=== PATIENT | female | born 1980 | race Caucasian/White ===

== ENCOUNTER 2016-08-15 18:28 | Emergency (ER) | payer OTHER ==
[~2016-08-15] VITALS: Ht 154.9 cm; Wt 110.5 kg
[~2016-08-15 18:28] MED LIST: CEPH-443 PO; ERYT1OIN6 RIGHT EYE; ESCI5TAB PO; IBUP-1542 PO; IBUP800T25 PO; LOPE2CAP PO; LORA-441 PO; NPH10OT BOTH EARS; TRAM50TA2 PO; ZIPR60CA6 PO
[2016-08-15 18:35] VITALS: Ht 154.9 cm; Wt 110.5 kg
--- NOTE | 2016-08-15 19:25 | ERD ---
ER Documentation Chief Complaint Date/Time DATE: 08/15/16 TIME: 19:21 Chief Complaint sp slipped and fall, right knee pain HPI This a 28-year-old female who presents to the emergency department today complaining of some right knee pain. Patient states that she was walking towards the sore today when she slipped and fell in the rain. She states she landed on top of her knee. She states she is able to move it but has pain. She has not taken any medication for the pain. Denies any fevers or chills. Denies any previous trauma to her knee. ROS All systems reviewed and are negative except as per history of present illness. Medications Home Meds Active Scripts Ibuprofen* (Motrin*) 600 Mg Tab, 600 MG PO Q6, #30 TAB Prov:JUAN JOSE ZUÑIGA PA-C 08/15/16 Loperamide Hcl* (Imodium*) 2 Mg Capsule, 2 MG PO .AFTER EA LOOSE BM Y for DIARRHEA, #10 TAB Prov:JOSE A DIAS PA-C 06/09/16 Tramadol HCl (Tramadol HCl) 50 Mg Tablet, 50 MG PO Q6 Y for PAIN, #12 TAB Prov:JUAN JOSE ZUÑIGA PA-C 01/22/16 Ibuprofen* (Motrin*) 600 Mg Tab, 600 MG PO Q6, #30 TAB Prov:JUAN JOSE ZUÑIGA PA-C 01/22/16 Cephalexin* (Keflex*) 500 Mg Capsule, 500 MG PO QID for 5 Days, CAP Prov:MARYELLEN SARKAR MD 09/08/15 Ibuprofen* (Motrin*) 600 Mg Tab, 600 MG PO Q6, #20 TAB Prov:MARYELLEN SARKAR MD 09/08/15 Tramadol HCl (Tramadol HCl) 50 Mg Tablet, 50 MG PO Q4 Y for PAIN, #20 TAB Prov:MARYELLEN SARKAR MD 09/08/15 Neomycin/Polymyxin/Hydrocort* (Cortisporin* Otic) 10 Ml Susp, 4 DROP BOTH EARS QID for 7 Days, EA Prov:CARITO LACY PA-C 08/09/15 Ibuprofen* (Ibuprofen*) 600 Mg Tablet, 600 MG PO Q6 for PAIN, #30 TAB Prov:AYANNA ALONSO PA-C 05/30/15 Erythromycin (Erythromycin Opth) 3.5 Gm Oint..gm., 1 APPLIC RIGHT EYE Q6, #1 TUB Prov:TALIA CHAVES NP 03/23/15 Ibuprofen* (Ibuprofen*) 800 Mg Tablet, 800 MG PO Q6H Y for PAIN AND OR ELEVATED TEMP, #30 TAB Prov:CARITO LACY PA-C 12/10/14 Reported Medications Escitalopram Oxalate* (Lexapro*) Unknown Strength Tablet, PO DAILY, TAB 11/12/14 Lorazepam* (Ativan*) 0.5 Mg Tablet, 0.5 MG PO HS 12/09/12 Ziprasidone* (Geodon*) 60 Mg Capsule, 120 MG PO HS 03/04/10 Allergies Allergies: Coded Allergies: aspirin (Verified Allergy, Mild, 06/09/16) acetaminophen (Verified Allergy, Unknown, ITCH, 06/09/16) hydrocodone bit (Verified Allergy, Unknown, ITCH, 06/09/16) PMhx/Soc History of Surgery: Yes (c/section x2) Anesthesia Reaction: No Hx Neurological Disorder: No Hx Respiratory Disorders: No Hx Cardiac Disorders: No Hx Psychiatric Problems: Yes (depression, bipolar) Hx Miscellaneous Medical Probl: No Hx Alcohol Use: No Hx Substance Use: No Hx Tobacco Use: No Physical Exam Vitals Vital Signs Date Time Temp Pulse Resp B/P Pulse Ox O2 Delivery O2 Flow Rate FiO2 08/15/16 18:35 96.5 112 20 127/76 100 Physical Exam Const: Obese, no acute distress Head: Atraumatic Eyes: Normal Conjunctiva ENT: Normal External Ears, Nose and Mouth. Neck: Full range of motion..~ No meningismus. Resp: Clear to auscultation bilaterally Cardio: Regular rate and rhythm, no murmurs Abd: Soft, non tender, non distended. Normal bowel sounds Skin: No petechiae or rashes MSK: Right knee with no obvious deformity. No effusion. Evidence of contusion and bruise over anterior aspect of tibial tubercle. Range of motion 0-100 secondary to soft tissue restriction. Pulses 2+. Distal neurovascularly intact. Psych: Normal Mood and Affect Results 24 hrs Current Medications Medications (Trade) Dose Ordered Sig/Betsey Route PRN Reason Start Time Stop Time Status Last Admin Dose Admin Ibuprofen (Motrin) 800 mg ONCE ONCE PO 08/15/16 19:30 08/15/16 19:31 DC 08/15/16 19:51 DIAGNOSTIC IMAGING REPORT Patient: JAMIE STEIN : 1980 Age: 36 Sex: F MR #: [id number] DOS: 08/15/16 0000 Ordering MD: JUAN JOSE ZUÑIGA PA-C Location: [facility] Room/Bed: AMENDMENT: 08/15/2016 8:41:17 PM Armand Levine MD ADDENDUM: Correction of dictation however. PROCEDURE: Right knee x-ray. TECHNIQUE: AP, lateral and oblique views of the right knee. IMPRESSION: Normal x-ray of the right knee. PROCEDURE: Left knee x-ray CLINICAL INDICATION: Fall with blunt trauma to the right knee. TECHNIQUE: AP, lateral and oblique views of the left knee were obtained. COMPARISON: None FINDINGS: There is normal mineralization. No acute fracture or dislocation is seen. There are no significant degenerative changes. There is no joint effusion. There is no significant soft tissue swelling. IMPRESSION: Normal x-ray of the left knee. RPTAT: [facility] Physician Yasmany Date Time Electronically viewed and signed by Physician Yasmany on 08/15/2016 20:41 RS/ CC: JUAN JOSE ZUÑIGA PA-C Procedures/MDM This is a 36-year-old female who presents the emergency department today complaining of right knee pain after slipping and falling in the rain today. Given that there was trauma patient did have some bruising on physical exam I did obtain images. Per the radiology report images of the right knee show no acute fracture or dislocation. There is no joint effusion. There is no significant degenerative changes. Patient's symptoms at this time consistent with sprain versus strain versus contusion. She was given Motrin here in the emergency department. I'll give her a prescription for home. She is also given a knee immobilizer and crutches. At this time the patient is stable for discharge and outpatient management. Patient should follow up with their PCP in the next 1-2 days. They may return to the emergency department sooner for any persistent or worsening of symptoms. Patient understood and agreed with the plan. Departure Diagnosis: Primary Impression: Knee injury Encounter type: initial encounter Laterality: right Qualified Code: S89.91XA - Knee injury, right, initial encounter Condition: JUAN JOSE Trent PA-C Aug 15, 2016 19:24
[2016-08-15] MEDS ORDERED: IBUPROFEN 800 MG TAB PO ONE (19:30)
--- NOTE | 2016-08-15 19:52 | RADRPT ---
AMENDMENT: 08/15/2016 8:41:17 PM Armand Levine MD ADDENDUM: Correction of dictation however. PROCEDURE: Right knee x-ray. TECHNIQUE: AP, lateral and oblique views of the right knee. IMPRESSION: Normal x-ray of the right knee. PROCEDURE: Left knee x-ray CLINICAL INDICATION: Fall with blunt trauma to the right knee. TECHNIQUE: AP, lateral and oblique views of the left knee were obtained. COMPARISON: None FINDINGS: There is normal mineralization. No acute fracture or dislocation is seen. There are no significant degenerative changes. There is no joint effusion. There is no significant soft tissue swelling. IMPRESSION: Normal x-ray of the left knee. RPTAT: [facility] Physician Yasmany Date Time Electronically viewed and signed by Physician Yasmany on 08/15/2016 20:41 RS/
[2016-08-15] MEDS ORDERED: IBUP-1542 PO (21:05)
[2016-08-15 21:42] VITALS: BP 166/72; PULSE 95; RESP 16
== END 2016-08-15 21:43 | disposition home or self-care (01) ==
LOC: FTE 18:28
DX: S89.91XA Unspecified injury of right lower leg, initial encounter (principal); W01.0XXA Fall on same level from slipping, tripping and stumbling without subsequent striking against object, initial encounter; Y92.9 Unspecified place or not applicable
CPT/HCPCS: 73562

== ENCOUNTER 2016-08-22 22:25 | Emergency (ER) | payer OTHER ==
[~2016-08-22] VITALS: Ht 154.9 cm; Wt 111.0 kg
[2016-08-22 22:48] VITALS: Ht 154.9 cm; Wt 111.0 kg
--- NOTE | 2016-08-22 23:08 | ERD ---
ER Documentation Chief Complaint Date/Time DATE: 08/22/16 TIME: 23:06 Chief Complaint Left wrist pain(contrary to nursing note is a left breast not the right.) HPI 28-year-old female complains of left-sided wrist pain status post ground-level fall that occurred just prior to arrival after slipping. She fell onto an outstretched hand, complains of radial wrist pain, described as achy, nonradiating, moderate pain. She took Naprosyn prior to arrival that slightly helped. ROS All systems reviewed and are negative except as per history of present illness. Medications Home Meds Active Scripts Tramadol HCl (Tramadol HCl) 50 Mg Tablet, 50 MG PO Q4 Y for PAIN, #20 TAB Prov:JOSE A DIAS PA-C 08/22/16 Ibuprofen* (Motrin*) 600 Mg Tab, 600 MG PO Q6, #30 TAB Prov:JUAN JOSE ZUÑIGA PA-C 08/15/16 Loperamide Hcl* (Imodium*) 2 Mg Capsule, 2 MG PO .AFTER EA LOOSE BM Y for DIARRHEA, #10 TAB Prov:JOSE A DIAS PA-C 06/09/16 Tramadol HCl (Tramadol HCl) 50 Mg Tablet, 50 MG PO Q6 Y for PAIN, #12 TAB Prov:JUAN JOSE ZUÑIGA PA-C 01/22/16 Ibuprofen* (Motrin*) 600 Mg Tab, 600 MG PO Q6, #30 TAB Prov:JUAN JOSE ZUÑIGA PA-C 01/22/16 Cephalexin* (Keflex*) 500 Mg Capsule, 500 MG PO QID for 5 Days, CAP Prov:MARYELLEN SARKAR MD 09/08/15 Ibuprofen* (Motrin*) 600 Mg Tab, 600 MG PO Q6, #20 TAB Prov:MARYELLEN SARKAR MD 09/08/15 Tramadol HCl (Tramadol HCl) 50 Mg Tablet, 50 MG PO Q4 Y for PAIN, #20 TAB Prov:MARYELLEN SARKAR MD 09/08/15 Neomycin/Polymyxin/Hydrocort* (Cortisporin* Otic) 10 Ml Susp, 4 DROP BOTH EARS QID for 7 Days, EA Prov:CARITO LACY PA-C 08/09/15 Ibuprofen* (Ibuprofen*) 600 Mg Tablet, 600 MG PO Q6 for PAIN, #30 TAB Prov:AYANNA ALONSO PA-C 05/30/15 Erythromycin (Erythromycin Opth) 3.5 Gm Oint..gm., 1 APPLIC RIGHT EYE Q6, #1 TUB Prov:NATANELISHATALIA BAHMAN Pope NP 03/23/15 Ibuprofen* (Ibuprofen*) 800 Mg Tablet, 800 MG PO Q6H Y for PAIN AND OR ELEVATED TEMP, #30 TAB Prov:CARITO LACY PA-C 12/10/14 Reported Medications Escitalopram Oxalate* (Lexapro*) Unknown Strength Tablet, PO DAILY, TAB 11/12/14 Lorazepam* (Ativan*) 0.5 Mg Tablet, 0.5 MG PO HS 12/09/12 Ziprasidone* (Geodon*) 60 Mg Capsule, 120 MG PO HS 03/04/10 Allergies Allergies: Coded Allergies: aspirin (Verified Allergy, Mild, 06/09/16) acetaminophen (Verified Allergy, Unknown, ITCH, 06/09/16) hydrocodone bit (Verified Allergy, Unknown, ITCH, 06/09/16) PMhx/Soc History of Surgery: Yes (c/section x2) Anesthesia Reaction: No Hx Neurological Disorder: No Hx Respiratory Disorders: No Hx Cardiac Disorders: No Hx Psychiatric Problems: Yes (depression, bipolar, states she sometimes hears voices) Hx Miscellaneous Medical Probl: No Hx Alcohol Use: No Hx Substance Use: No Hx Tobacco Use: No Smoking Status: Never smoker Physical Exam Vitals Vital Signs Date Time Temp Pulse Resp B/P Pulse Ox O2 Delivery O2 Flow Rate FiO2 08/22/16 22:48 98.1 94 16 123/74 100 Physical Exam General: Well-developed, well-nourished. The patient appears in no acute distress. HEENT: Head is normocephalic, atraumatic. No scleral icterus. Neck: Supple. Nontender. Lungs: Clear to auscultation. Normal air movement. Heart: Regular rate and rhythm. S1 and S2 are normal. No murmurs, gallops, or rubs. Abdomen: Nondistended. Extremities: Left radial wrist has tenderness to palpation, no bony deformities , no bony tenderness, no snuffbox tenderness. Capillary refill less than 2 seconds. Neurologic: Alert and oriented 3. No focal deficits. Normal speech and gait. Skin: Normal turgor. No rash or lesions. Results 24 hrs Current Medications Medications (Trade) Dose Ordered Sig/Betsey Route PRN Reason Start Time Stop Time Status Last Admin Dose Admin Acetaminophen (Tylenol Tab) 650 mg ONCE ONCE PO 08/22/16 23:30 08/22/16 23:31 DC 08/22/16 23:21 Procedures/MDM ED course: She was given Tylenol for pain, x-rays of the left wrist were obtained. X-ray Wrist 3V Interpreted by me: Scaphoid: Normal Bones: No fracture Joints: No dislocation Foreign body: None Patient's left wrist was placed in a Velcro wrist splint. Splint Assessment: Neurovascularly intact post splint placement with good fit. MDM: 28-year-old female presents as with a fall, resulting in left wrist pain, sprain versus fracture. She is neurologically intact, will be discharged with a splint, and pain meds as needed. Departure Diagnosis: Primary Impression: Wrist injury Condition: Good JOSE A DIAS PA-C Aug 22, 2016 23:08
[2016-08-22] MEDS ORDERED: ACETAMINOPHEN 325 MG TAB PO ONE (23:30)
[2016-08-22] MEDS ORDERED: TRAM50TA2 PO (23:58)
--- NOTE | 2016-08-23 00:13 | RADRPT ---
PROCEDURE: XR Left Wrist. CLINICAL INDICATION: Trauma. Pain. TECHNIQUE: AP, lateral and oblique views of the left wrist were performed. COMPARISON: No prior studies are available for comparison. FINDINGS: No acute fracture is identified. Joint relationships are maintained. Bone mineralization is within normal limits. Soft tissues are unremarkable. IMPRESSION: 1. No acute abnormality. RPTAT: HMVK .Clarence Groves MD, Date Time Electronically viewed and signed by .Clarence Groves MD, on 08/23/2016 00:13 .K/
== END 2016-08-23 01:05 | disposition home or self-care (01) ==
LOC: FTE 22:25
DX: S69.92XA Unspecified injury of left wrist, hand and finger(s), initial encounter (principal); W01.0XXA Fall on same level from slipping, tripping and stumbling without subsequent striking against object, initial encounter; Y92.9 Unspecified place or not applicable

== ENCOUNTER 2016-11-10 18:27 | Emergency (ER) | payer OTHER ==
[~2016-11-10] VITALS: Ht 157.5 cm; Wt 106.0 kg
[2016-11-10 18:53] VITALS: Ht 157.5 cm; Wt 106.0 kg
[2016-11-10] MEDS ORDERED: CYCL-319 PO (20:08)
--- NOTE | 2016-11-10 20:12 | ERD ---
ER Documentation Chief Complaint Date/Time DATE: 11/10/16 TIME: 20:10 Chief Complaint Left side neck pain since Sunday. possible stiff neck HPI This patient is a 28-year-old female with no past medical history presenting to the emergency department for left paraspinal C-spine pain which began 5 days ago. Pain is constant and stabbing. The patient has taken ibuprofen at home with mild relief of symptoms. The patient denies radiation. The patient denies falls, trauma, head injury, loss of consciousness, or other symptoms at this time. ROS All systems reviewed and are negative except as per history of present illness. Medications Home Meds Active Scripts Cyclobenzaprine Hcl* (Cyclobenzaprine Hcl*) 10 Mg Tablet, 10 MG PO TID, #15 TAB Prov:DARLING BRYANT PA-C 11/10/16 Tramadol HCl (Tramadol HCl) 50 Mg Tablet, 50 MG PO Q4 Y for PAIN, #20 TAB Prov:JOSE A DIAS PA-C 08/22/16 Ibuprofen* (Motrin*) 600 Mg Tab, 600 MG PO Q6, #30 TAB Prov:JUAN JOSE ZUÑIGA PA-C 08/15/16 Loperamide Hcl* (Imodium*) 2 Mg Capsule, 2 MG PO .AFTER EA LOOSE BM Y for DIARRHEA, #10 TAB Prov:JOSE A DIAS PA-C 06/09/16 Tramadol HCl (Tramadol HCl) 50 Mg Tablet, 50 MG PO Q6 Y for PAIN, #12 TAB Prov:JUAN JOSE ZUÑIGA PA-C 01/22/16 Ibuprofen* (Motrin*) 600 Mg Tab, 600 MG PO Q6, #30 TAB Prov:JUAN JOSE ZUÑIGA PA-C 01/22/16 Cephalexin* (Keflex*) 500 Mg Capsule, 500 MG PO QID for 5 Days, CAP Prov:MARYELLEN SARKAR MD 09/08/15 Ibuprofen* (Motrin*) 600 Mg Tab, 600 MG PO Q6, #20 TAB Prov:MARYELLEN SARKAR MD 09/08/15 Tramadol HCl (Tramadol HCl) 50 Mg Tablet, 50 MG PO Q4 Y for PAIN, #20 TAB Prov:MARYELLEN SARKAR MD 09/08/15 Neomycin/Polymyxin/Hydrocort* (Cortisporin* Otic) 10 Ml Susp, 4 DROP BOTH EARS QID for 7 Days, EA Prov:CARITO LACY PA-C 08/09/15 Ibuprofen* (Ibuprofen*) 600 Mg Tablet, 600 MG PO Q6 for PAIN, #30 TAB Prov:AYANNA ALONSO PA-C 05/30/15 Erythromycin (Erythromycin Opth) 3.5 Gm Oint..gm., 1 APPLIC RIGHT EYE Q6, #1 TUB Prov:TALIA CHAVES ROUGE PRESSER 03/23/15 Ibuprofen* (Ibuprofen*) 800 Mg Tablet, 800 MG PO Q6H Y for PAIN AND OR ELEVATED TEMP, #30 TAB Prov:CARITO LACY PA-C 12/10/14 Reported Medications Escitalopram Oxalate* (Lexapro*) Unknown Strength Tablet, PO DAILY, TAB 11/12/14 Lorazepam* (Ativan*) 0.5 Mg Tablet, 0.5 MG PO HS 12/09/12 Ziprasidone* (Geodon*) 60 Mg Capsule, 120 MG PO HS 03/04/10 Allergies Allergies: Coded Allergies: aspirin (Verified Allergy, Mild, 11/10/16) acetaminophen (Verified Allergy, Unknown, ITCH, 11/10/16) hydrocodone bit (Verified Allergy, Unknown, ITCH, 11/10/16) PMhx/Soc History of Surgery: Yes (c/section x2) Anesthesia Reaction: No Hx Neurological Disorder: No Hx Respiratory Disorders: No Hx Cardiac Disorders: No Hx Psychiatric Problems: Yes (depression, bipolar, states she sometimes hears voices) Hx Miscellaneous Medical Probl: No Hx Alcohol Use: No Hx Substance Use: No Hx Tobacco Use: No FmHx Noncontributory for chief complaint Physical Exam Vitals Vital Signs Date Time Temp Pulse Resp B/P Pulse Ox O2 Delivery O2 Flow Rate FiO2 11/10/16 18:53 98.6 80 20 129/72 98 Physical Exam Const: The patient is resting comfortably in no acute distress. Head: Atraumatic Eyes: Normal Conjunctiva ENT: Normal External Ears, Nose and Mouth. Neck: Full range of motion..~ No meningismus. There is some tenderness to palpation with some spasms noted to the left-sided paraspinal muscles of the C-spine. There is no midline tenderness. Resp: Clear to auscultation bilaterally Cardio: Regular rate and rhythm, no murmurs Abd: Soft, non tender, non distended. Normal bowel sounds Skin: No petechiae or rashes Back: No midline or flank tenderness Ext: No cyanosis, or edema Neur: Awake and alert Psych: Normal Mood and Affect Procedures/MDM 28-year-old female presents secondary to complaints of left paraspinal cervical pain. On physical examination the patient's vitals are within normal limits. There is some tenderness palpation with spasms noted of the paraspinal muscles of the cervical spine area. I do not feel that the patient requires imaging at this time due to her denying any falls or trauma to the area. The patient is stable for outpatient management with a prescription for Flexeril. She was given counseling regarding injury prevention and neck exercises to do at home. The patient is to have close follow-up with her primary care physician. Strict ER return precautions were discussed and the patient demonstrates good understanding. Departure Diagnosis: Primary Impression: Neck pain Additional Impression: Neck muscle strain Encounter type: initial encounter Qualified Code: S16.1XXA - Neck muscle strain, initial encounter Condition: Fair Patient Instructions: Neck Pain, No Trauma Referrals: [facility] YOU HAVE RECEIVED A MEDICAL SCREENING EXAM AND THE RESULTS INDICATE THAT YOU DO NOT HAVE A CONDITION THAT REQUIRES URGENT TREATMENT IN THE EMERGENCY DEPARTMENT. FURTHER EVALUATION AND TREATMENT OF YOUR CONDITION CAN WAIT UNTIL YOU ARE SEEN IN YOUR DOCTORS OFFICE WITHIN THE NEXT 1-2 DAYS. IT IS YOUR RESPONSIBILITY TO MAKE AN APPOINTMENT FOR FOLOW-UP CARE. IF YOU HAVE A PRIMARY DOCTOR --you should call your primary doctor and schedule an appointment IF YOU DO NOT HAVE A PRIMARY DOCTOR YOU CAN CALL OUR PHYSICIAN REFERRAL HOTLINE AT IF YOU CAN NOT AFFORD TO SEE A PHYSICIAN YOU CAN CHOSE FROM THE FOLLOWING [facility] [id number] [facility]. [facility] [address] [facility]. [facility] [place] [address] [facility] [address] [facility]. [facility] [address] [facility]. [facility] [address] Additional Instructions: Follow up with your PCP within the next 1-3 days for a more thorough evaluation and a possible referral to a specialist. Return the the emergency department immediately if symptoms worsen or change. If you have any questions regarding medications, ask your pharmacist or us before you leave. If any adverse reactions, occur while taking your medications, discontinue the treatment and return to the emergency department immediately. If any new or worsening symptoms, uncontrolled fevers, or other unexplained symptoms occur, return to the emergency department immediately. Take your medications as directed, and complete the entire course of treatment. DRALING BRYANT PA-C November 10, 2016 20:12
== END 2016-11-10 20:35 | disposition home or self-care (01) ==
LOC: FTE 18:27
DX: S16.1XXA Strain of muscle, fascia and tendon at neck level, initial encounter (principal); X58.XXXA Exposure to other specified factors, initial encounter; Y92.9 Unspecified place or not applicable
CPT/HCPCS: 99283

== ENCOUNTER 2017-02-01 21:41 | Emergency (ER) | payer OTHER ==
[~2017-02-01] VITALS: Ht 154.9 cm; Wt 100.5 kg
[~2017-02-01 21:41] MED LIST changes: +CYCL-319 PO
[2017-02-01 21:55] VITALS: Ht 154.9 cm; Wt 100.5 kg
[2017-02-02] MEDS ORDERED: LIDOCAINE 2% (MDV) 20 ML INJ INJ ONE
[2017-02-02] MEDS ORDERED: SULF1TAB31 PO (01:12)
[2017-02-02] MEDS ORDERED: CEPH-443 PO (01:12)
[2017-02-02 01:33] VITALS: BP 123/76; PULSE 75; RESP 16; TEMP 98.5
--- NOTE | 2017-02-02 01:43 | ERD ---
ER Documentation Chief Complaint Date/Time DATE: 02/02/17 TIME: 01:39 Chief Complaint "lump" in between pubic area - noticed by pt since yesterday HPI 37-year-old female patient with no significant past medical history presents the ED complaining of a left inner thigh bump that she noticed yesterday. Reports that it is very painful. States that it is red. Denies any insect bites. Denies any vaginal discharge or bleeding. Denies any dysuria, urgency, frequency, nausea, vomiting, abdominal pain. Denies any difficulty walking. ROS All systems reviewed and are negative except as per history of present illness. Medications Home Meds Active Scripts Cephalexin* (Keflex*) 500 Mg Capsule, 500 MG PO QID for 7 Days, CAP Prov:GERA CHAMBERS PA-C 02/02/17 Sulfamethoxazole/Trimethoprim* (Bactrim Ds* Tablet) 1 Each Tablet, 1 TAB PO BID for 7 Days, #14 TAB Prov:GERA CHAMBERS PA-C 02/02/17 Cyclobenzaprine Hcl* (Cyclobenzaprine Hcl*) 10 Mg Tablet, 10 MG PO TID, #15 TAB Prov:DARLING BRYANT PA-C 11/10/16 Tramadol HCl (Tramadol HCl) 50 Mg Tablet, 50 MG PO Q4 Y for PAIN, #20 TAB Prov:JOSE A DIAS PA-C 08/22/16 Ibuprofen* (Motrin*) 600 Mg Tab, 600 MG PO Q6, #30 TAB Prov:JUAN JOSE ZUÑIGA PA-C 08/15/16 Loperamide Hcl* (Imodium*) 2 Mg Capsule, 2 MG PO .AFTER EA LOOSE BM Y for DIARRHEA, #10 TAB Prov:JOSE A DIAS PA-C 06/09/16 Tramadol HCl (Tramadol HCl) 50 Mg Tablet, 50 MG PO Q6 Y for PAIN, #12 TAB Prov:JUAN JOSE ZUÑIGA PA-C 01/22/16 Ibuprofen* (Motrin*) 600 Mg Tab, 600 MG PO Q6, #30 TAB Prov:JUAN JOSE ZUÑIGA PA-C 01/22/16 Cephalexin* (Keflex*) 500 Mg Capsule, 500 MG PO QID for 5 Days, CAP Prov:MARYELLEN SARKAR MD 09/08/15 Ibuprofen* (Motrin*) 600 Mg Tab, 600 MG PO Q6, #20 TAB Prov:MARYELLEN SARKAR MD 09/08/15 Tramadol HCl (Tramadol HCl) 50 Mg Tablet, 50 MG PO Q4 Y for PAIN, #20 TAB Prov:MARYELLEN SARKAR MD 09/08/15 Neomycin/Polymyxin/Hydrocort* (Cortisporin* Otic) 10 Ml Susp, 4 DROP BOTH EARS QID for 7 Days, EA Prov:CARITO LACY PA-C 08/09/15 Ibuprofen* (Ibuprofen*) 600 Mg Tablet, 600 MG PO Q6 for PAIN, #30 TAB Prov:AYANNA ALONSO PA-C 05/30/15 Erythromycin (Erythromycin Opth) 3.5 Gm Oint..gm., 1 APPLIC RIGHT EYE Q6, #1 TUB Prov:TALIA CHAVES NP 03/23/15 Ibuprofen* (Ibuprofen*) 800 Mg Tablet, 800 MG PO Q6H Y for PAIN AND OR ELEVATED TEMP, #30 TAB Prov:CARITO LACY PA-C 12/10/14 Reported Medications Escitalopram Oxalate* (Lexapro*) Unknown Strength Tablet, PO DAILY, TAB 11/12/14 Lorazepam* (Ativan*) 0.5 Mg Tablet, 0.5 MG PO HS 12/09/12 Ziprasidone* (Geodon*) 60 Mg Capsule, 120 MG PO HS 03/04/10 Allergies Allergies: Coded Allergies: aspirin (Verified Allergy, Mild, 11/10/16) acetaminophen (Verified Allergy, Unknown, ITCH, 11/10/16) hydrocodone bit (Verified Allergy, Unknown, ITCH, 11/10/16) PMhx/Soc History of Surgery: Yes (c/section x2) Anesthesia Reaction: No Hx Neurological Disorder: No Hx Respiratory Disorders: No Hx Cardiac Disorders: No Hx Psychiatric Problems: Yes (depression, bipolar, states she sometimes hears voices) Hx Miscellaneous Medical Probl: No Hx Alcohol Use: No Hx Substance Use: No Hx Tobacco Use: No Smoking Status: Never smoker Physical Exam Vitals Vital Signs Date Time Temp Pulse Resp B/P Pulse Ox O2 Delivery O2 Flow Rate FiO2 02/02/17 01:33 98.5 75 16 123/76 99 Room Air 02/01/17 21:55 98.4 89 20 130/68 99 Physical Exam Const: [id number], well-nourished. In no acute distress. Head: Atraumatic, normocephalic Eyes: Normal Conjunctiva without injection ENT: Normal external ear, nose and mouth. Neck: Full range of motion. No meningismus. Resp: Clear to auscultation bilaterally. No wheezing, rhonchi, rales, or crackles. No accessory muscle use. No retractions. Cardio: Regular rate and rhythm, no murmurs Skin: No petechiae or rashes Back: No midline tenderness. No CVA tenderness. Ext: No cyanosis, or edema. Cap refill less than 2 seconds. Distal pulses intact bilaterally. 2 cm fluctuant abscess noted on the left inner thigh near the posterior buttocks with slight surrounding erythema. No lymphatic streaking. No bleeding noted. No spontaneous drainage noted. Neur: Awake and alert. Normal gait and coordination. Muscle strength 5/5. Sensation intact bilaterally. Psych: Normal Mood and Affect Results 24 hrs Current Medications Medications (Trade) Dose Ordered Sig/Betsey Route PRN Reason Start Time Stop Time Status Last Admin Dose Admin Lidocaine (Xylocaine 2% (Mdv) 20 ml) 20 ml ONCE ONCE INJ 02/02/17 00:00 02/02/17 00:01 DC Procedures/MDM This is a 37-year-old female patient with no sniffing a past medical history presents to the ED complaining of a red bump to her left inner thigh and near her posterior buttocks. Patient is afebrile and nontoxic-appearing. Patient has normal vital signs. Patient gave consent to do a incision and drainage at this time. Patient gave consent to perform incision and drainage. 11 blade scalpel used to make a small incision. Abscess Incision and Drainage with irrigation by me: Location: Left inner thigh near the posterior buttocks Anesthesia: [3 cc local 1% Lidocaine] Technique: [Irrigated. Disrupted loculations w/ instrumentation ] Packing: [None] Complications: [Neurovascularly intact post procedure] Copious purulent discharge drained from the abscess. Keflex and Bactrim was prescribed to patient. Instructed patient to return to the ED sooner for any worsening symptoms. Follow up with primary care physician or return to the ED in 2 days for a wound check. Patient's questions were answered. Patient understood and agreed with discharge plan. Departure Diagnosis: Primary Impression: Abscess Condition: Stable Patient Instructions: Abscess, Incision And Drainage Referrals: [facility] YOU HAVE RECEIVED A MEDICAL SCREENING EXAM AND THE RESULTS INDICATE THAT YOU DO NOT HAVE A CONDITION THAT REQUIRES URGENT TREATMENT IN THE EMERGENCY DEPARTMENT. FURTHER EVALUATION AND TREATMENT OF YOUR CONDITION CAN WAIT UNTIL YOU ARE SEEN IN YOUR DOCTORS OFFICE WITHIN THE NEXT 1-2 DAYS. IT IS YOUR RESPONSIBILITY TO MAKE AN APPOINTMENT FOR FOLOW-UP CARE. IF YOU HAVE A PRIMARY DOCTOR --you should call your primary doctor and schedule an appointment IF YOU DO NOT HAVE A PRIMARY DOCTOR YOU CAN CALL OUR PHYSICIAN REFERRAL HOTLINE AT IF YOU CAN NOT AFFORD TO SEE A PHYSICIAN YOU CAN CHOSE FROM THE FOLLOWING [facility] [address] [facility]. [facility] [address] [facility] [facility] [address] [facility] [address] [facility] [facility] [facility] [address] [facility]. [facility] [address] [facility]. [facility] YOU HAVE RECEIVED A MEDICAL SCREENING EXAM AND THE RESULTS INDICATE THAT YOU DO NOT HAVE A CONDITION THAT REQUIRES URGENT TREATMENT IN THE EMERGENCY DEPARTMENT. FURTHER EVALUATION AND TREATMENT OF YOUR CONDITION CAN WAIT UNTIL YOU ARE SEEN IN YOUR DOCTORS OFFICE WITHIN THE NEXT 1-2 DAYS. IT IS YOUR RESPONSIBILITY TO MAKE AN APPOINTMENT FOR FOLOW-UP CARE. IF YOU HAVE A PRIMARY DOCTOR --you should call your primary doctor and schedule and appointment IF YOU DO NOT HAVE A PRIMARY DOCTOR YOU CAN CALL OUR PHYSICIAN REFERRAL HOTLINE AT . IF YOU CAN NOT AFFORD TO SEE A PHYSICIAN YOU CAN CHOSE FROM THE FOLLOWING [facility] INSTITUTIONS: [facility] [address] [place] [address] [facility] [address] [place] [address] [facility] [address] [place] [address] [facility] URGENT CARE/SPECIALTIES Additional Instructions: Follow up in 2 days in your clinic for wound check. Complete all of your antibiotics. Call your primary care doctor TOMORROW for an appointment during the next 2-3 days.See the doctor sooner or return here if your condition worsens before your appointment time. GERA CHAMBERS PA-C Feb 02, 2017 01:43
== END 2017-02-02 01:33 | disposition home or self-care (01) ==
LOC: FTE 21:41
DX: L02.415 Cutaneous abscess of right lower limb (principal)

== ENCOUNTER 2017-02-21 00:20 | Emergency (ER) | payer OTHER ==
[~2017-02-21] VITALS: Ht 165.1 cm; Wt 99.0 kg
[~2017-02-21 00:20] MED LIST changes: +ESCI10TA; +ESCI20TA; +ESCI20TA PO; +FLUTICASONE NASL; +LORA-441; +SULF1TAB31 PO; +[UNRECOGNIZED DRUG - OTHER]; +[UNRECOGNIZED DRUG - OTHER]; +[UNRECOGNIZED DRUG - REMARK]; +same meds
[2017-02-21 00:22] VITALS: Ht 165.1 cm; Wt 99.0 kg
[2017-02-21] MEDS ORDERED: IBUPROFEN 800 MG TAB PO ONE (01:00)
--- NOTE | 2017-02-21 02:03 | ERD ---
ER Documentation Chief Complaint Date/Time DATE: 02/21/17 TIME: 01:57 Chief Complaint left ankle pain s/p slip while wearing heels. Took Motrin 20 min ago. HPI This is a 37-year-old female presents to the emergency department today complaining of left ankle pain that started earlier this evening. Patient states she was wearing high heels and she slipped and fell. Denies any fevers or chills. ROS All systems reviewed and are negative except as per history of present illness. Medications Home Meds Active Scripts Ibuprofen* (Motrin*) 600 Mg Tab, 600 MG PO Q6, #30 TAB Prov:JUAN JOSE ZUÑIGAC 02/21/17 Cephalexin* (Keflex*) 500 Mg Capsule, 500 MG PO QID for 7 Days, CAP Prov:GERA CHAMBERS PA-C 02/02/17 Sulfamethoxazole/Trimethoprim* (Bactrim Ds* Tablet) 1 Each Tablet, 1 TAB PO BID for 7 Days, #14 TAB Prov:GERA CHAMBERS PA-C 02/02/17 Cyclobenzaprine Hcl* (Cyclobenzaprine Hcl*) 10 Mg Tablet, 10 MG PO TID, #15 TAB Prov:DARLING BRYANT PA-C 11/10/16 Tramadol HCl (Tramadol HCl) 50 Mg Tablet, 50 MG PO Q4 Y for PAIN, #20 TAB Prov:JOSE A DIAS PA-C 08/22/16 Ibuprofen* (Motrin*) 600 Mg Tab, 600 MG PO Q6, #30 TAB Prov:JUAN JOSE ZUÑIGA PA-C 08/15/16 Loperamide Hcl* (Imodium*) 2 Mg Capsule, 2 MG PO .AFTER EA LOOSE BM Y for DIARRHEA, #10 TAB Prov:JOSE A DIAS PA-C 06/09/16 Tramadol HCl (Tramadol HCl) 50 Mg Tablet, 50 MG PO Q6 Y for PAIN, #12 TAB Prov:JUAN JOSE ZUÑIGA PA-C 01/22/16 Ibuprofen* (Motrin*) 600 Mg Tab, 600 MG PO Q6, #30 TAB Prov:JUAN JOSE ZUÑIGAC 01/22/16 Cephalexin* (Keflex*) 500 Mg Capsule, 500 MG PO QID for 5 Days, CAP Prov:MARYELLEN SARKAR MD 09/08/15 Ibuprofen* (Motrin*) 600 Mg Tab, 600 MG PO Q6, #20 TAB Prov:MARYELLEN SARKAR MD 09/08/15 Tramadol HCl (Tramadol HCl) 50 Mg Tablet, 50 MG PO Q4 Y for PAIN, #20 TAB Prov:MARYELLEN SARKAR MD 09/08/15 Neomycin/Polymyxin/Hydrocort* (Cortisporin* Otic) 10 Ml Susp, 4 DROP BOTH EARS QID for 7 Days, EA Prov:CARITO LACY PA-C 08/09/15 Ibuprofen* (Ibuprofen*) 600 Mg Tablet, 600 MG PO Q6 for PAIN, #30 TAB Prov:AYANNA ALONSO PA-C 05/30/15 Erythromycin (Erythromycin Opth) 3.5 Gm Oint..gm., 1 APPLIC RIGHT EYE Q6, #1 TUB Prov:TALIA CHAVES NP 03/23/15 Ibuprofen* (Ibuprofen*) 800 Mg Tablet, 800 MG PO Q6H Y for PAIN AND OR ELEVATED TEMP, #30 TAB Prov:CARITO LACY PA-C 12/10/14 Reported Medications Escitalopram Oxalate* (Lexapro*) Unknown Strength Tablet, PO DAILY, TAB 11/12/14 Lorazepam* (Ativan*) 0.5 Mg Tablet, 0.5 MG PO HS 12/09/12 Ziprasidone* (Geodon*) 60 Mg Capsule, 120 MG PO HS 03/04/10 Allergies Allergies: Coded Allergies: aspirin (Verified Allergy, Mild, 11/10/16) acetaminophen (Verified Allergy, Unknown, ITCH, 11/10/16) hydrocodone bit (Verified Allergy, Unknown, ITCH, 11/10/16) PMhx/Soc Medical and Surgical Hx: pt denies Surgical Hx History of Surgery: Yes (c/section x2) Anesthesia Reaction: No Hx Neurological Disorder: No Hx Respiratory Disorders: No Hx Cardiac Disorders: No Hx Psychiatric Problems: Yes (depression, bipolar, states she sometimes hears voices) Hx Miscellaneous Medical Probl: Yes (schizophrenia) Hx Alcohol Use: No Hx Substance Use: No Hx Tobacco Use: No Smoking Status: Never smoker Physical Exam Vitals Vital Signs Date Time Temp Pulse Resp B/P Pulse Ox O2 Delivery O2 Flow Rate FiO2 02/21/17 00:22 97.8 72 18 122/74 99 Physical Exam Const: No acute distress Head: Atraumatic Eyes: Normal Conjunctiva ENT: Normal External Ears, Nose and Mouth. Neck: Full range of motion..~ No meningismus. Resp: Clear to auscultation bilaterally Cardio: Regular rate and rhythm, no murmurs Skin: No petechiae or rashes MSK: Left ankle with no obvious deformity. Mild effusion over lateral aspect. No ecchymosis. Decreased range of motion secondary to pain. Pulses 2+ . Distal neurovascularly intact per Neur: Awake and alert Psych: Normal Mood and Affect Results 24 hrs Current Medications Medications (Trade) Dose Ordered Sig/Betsey Route PRN Reason Start Time Stop Time Status Last Admin Dose Admin Ibuprofen (Motrin) 800 mg ONCE ONCE PO 02/21/17 01:00 02/21/17 01:01 DC 02/21/17 01:17 DIAGNOSTIC IMAGING REPORT Patient: JAMIE STEIN : 1980 Age: 37 Sex: F MR #: [id number] DOS: 02/21/17 0000 Ordering MD: JUAN JOSE ZUÑIGA PA-C Location: [facility] Room/Bed: PROCEDURE: XR Ankle. CLINICAL INDICATION: Left ankle pain. TECHNIQUE: Three views of the left ankle. COMPARISON: None available. FINDINGS: No fracture or dislocation is identified. The ankle mortise appears intact in this nonstressed study. There are dorsal and plantar calcaneal enthesophytes. There is no significant soft tissue swelling. IMPRESSION: 1. No fracture or dislocation of the left ankle. RPTAT: HTAR .Milton Kingston MD, MD Date Time Electronically viewed and signed by .Milton Kingston MD, on 02/21/2017 02:14 .R/ CC: JUAN JOSE ZUÑIGA PA-C Procedures/MDM This 37-year-old female presents emergency department today complaining of left ankle pain after slipping and falling while wearing high heels. Given that there was trauma patient had some swelling over the lateral aspect of her ankle I did obtain images. Per the radiology report images of the left ankle show no acute fracture or dislocation. Low suspicion for acute fracture dislocation. symptoms at this time is consistent with strain versus sprain versus contusion. Patient was given Motrin here in the emergency department. She will be given a prescription for Motrin for home. She was also given an Carlos wrap for compression and crutches to help ambulate. At this time the patient is stable for discharge and outpatient management. Patient should follow up with their PCP in the next 1-2 days. They may return to the emergency department sooner for any persistent or worsening of symptoms. Patient understood and agreed with the plan. Departure Diagnosis: Primary Impression: Ankle injury Encounter type: initial encounter Laterality: left Qualified Code: S99.912A - Ankle injury, left, initial encounter Condition: Fair JUAN JOSE ZUÑIGA PA-C Feb 21, 2017 02:02
--- NOTE | 2017-02-21 02:14 | RADRPT ---
PROCEDURE: XR Ankle. CLINICAL INDICATION: Left ankle pain. TECHNIQUE: Three views of the left ankle. COMPARISON: None available. FINDINGS: No fracture or dislocation is identified. The ankle mortise appears intact in this nonstressed stud y. There are dorsal and plantar calcaneal enthesophytes. There is no significant soft tissue swelling. IMPRESSION: 1. No fracture or dislocation of the left ankle. RPTAT: HTAR .Milton Kingston MD, MD Date Time Electronically viewed and signed by .Milton Kingston MD, MD on 02/21/2017 02:14 .R/
[2017-02-21] MEDS ORDERED: IBUP-1542 PO (02:17)
== END 2017-02-21 02:25 | disposition home or self-care (01) ==
LOC: FTE 00:20
DX: S99.912A Unspecified injury of left ankle, initial encounter (principal); W01.0XXA Fall on same level from slipping, tripping and stumbling without subsequent striking against object, initial encounter; Y92.9 Unspecified place or not applicable
CPT/HCPCS: 73610

== ENCOUNTER 2017-05-07 23:35 | Emergency (ER) | payer OTHER ==
[~2017-05-07] VITALS: Ht 165.1 cm; Wt 99.0 kg
[~2017-05-07 23:35] MED LIST changes: -ESCI10TA; -ESCI20TA; -ESCI20TA PO; -FLUTICASONE NASL; -LORA-441; -[UNRECOGNIZED DRUG - OTHER]; -[UNRECOGNIZED DRUG - OTHER]; -[UNRECOGNIZED DRUG - REMARK]; -same meds
[2017-05-07 23:39] VITALS: Ht 165.1 cm; Wt 99.0 kg
--- NOTE | 2017-05-08 03:53 | ERD ---
ER Documentation Chief Complaint Chief Complaint abd pain since this am, no relief w/motrin. Denies n/v/d HPI 37-year-old female presents here in emergency department for complaints of abdominal pain that started this morning. Patient describes the pain as throbbing pain, 6/10 scale, generalized abdomen. Patient took Motrin for pain with only mild relief. Patient denies any nausea vomiting diarrhea or constipation. Patient feels bloated. ROS All systems reviewed and are negative except as per history of present illness. Medications Home Meds Active Scripts Ibuprofen* (Motrin*) 600 Mg Tab, 600 MG PO Q6, #30 TAB Prov:JUAN JOSE ZUÑIGAC 02/21/17 Cephalexin* (Keflex*) 500 Mg Capsule, 500 MG PO QID for 7 Days, CAP Prov:GERA CHAMBERS PA-C 02/02/17 Sulfamethoxazole/Trimethoprim* (Bactrim Ds* Tablet) 1 Each Tablet, 1 TAB PO BID for 7 Days, #14 TAB Prov:GERA CHAMBERS PA-C 02/02/17 Cyclobenzaprine Hcl* (Cyclobenzaprine Hcl*) 10 Mg Tablet, 10 MG PO TID, #15 TAB Prov:DARLING BRYANT PA-C 11/10/16 Tramadol HCl (Tramadol HCl) 50 Mg Tablet, 50 MG PO Q4 Y for PAIN, #20 TAB Prov:JOSE A DIAS PA-C 08/22/16 Ibuprofen* (Motrin*) 600 Mg Tab, 600 MG PO Q6, #30 TAB Prov:JUAN JOSE ZUÑIGA PA-C 08/15/16 Loperamide Hcl* (Imodium*) 2 Mg Capsule, 2 MG PO .AFTER EA LOOSE BM Y for DIARRHEA, #10 TAB Prov:JOSE A DIAS PA-C 06/09/16 Tramadol HCl (Tramadol HCl) 50 Mg Tablet, 50 MG PO Q6 Y for PAIN, #12 TAB Prov:JUAN JOSE ZUÑIGAC 01/22/16 Ibuprofen* (Motrin*) 600 Mg Tab, 600 MG PO Q6, #30 TAB Prov:JUAN JOSE ZUÑIGAC 01/22/16 Cephalexin* (Keflex*) 500 Mg Capsule, 500 MG PO QID for 5 Days, CAP Prov:MARYELLEN SARKAR MD 09/08/15 Ibuprofen* (Motrin*) 600 Mg Tab, 600 MG PO Q6, #20 TAB Prov:MARYELLEN SARKAR MD 09/08/15 Tramadol HCl (Tramadol HCl) 50 Mg Tablet, 50 MG PO Q4 Y for PAIN, #20 TAB Prov:MARYELLEN SARKAR MD 09/08/15 Neomycin/Polymyxin/Hydrocort* (Cortisporin* Otic) 10 Ml Susp, 4 DROP BOTH EARS QID for 7 Days, EA Prov:CARITO LACY PA-C 08/09/15 Ibuprofen* (Ibuprofen*) 600 Mg Tablet, 600 MG PO Q6 for PAIN, #30 TAB Prov:AYANNA ALONSO PA-C 05/30/15 Erythromycin (Erythromycin Opth) 3.5 Gm Oint..gm., 1 APPLIC RIGHT EYE Q6, #1 TUB Prov:TALIA CHAVES NP 03/23/15 Ibuprofen* (Ibuprofen*) 800 Mg Tablet, 800 MG PO Q6H Y for PAIN AND OR ELEVATED TEMP, #30 TAB Prov:CARITO LACY PA-C 12/10/14 Reported Medications Escitalopram Oxalate* (Lexapro*) Unknown Strength Tablet, PO DAILY, TAB 11/12/14 Lorazepam* (Ativan*) 0.5 Mg Tablet, 0.5 MG PO HS 12/09/12 Ziprasidone* (Geodon*) 60 Mg Capsule, 120 MG PO HS 03/04/10 Allergies Allergies: Coded Allergies: aspirin (Verified Allergy, Mild, 05/07/17) acetaminophen (Verified Allergy, Unknown, ITCH, 05/07/17) hydrocodone bit (Verified Allergy, Unknown, ITCH, 05/07/17) PMhx/Soc History of Surgery: Yes (c/section x2) Anesthesia Reaction: No Hx Neurological Disorder: No Hx Respiratory Disorders: No Hx Cardiac Disorders: No Hx Psychiatric Problems: Yes (depression, bipolar, states she sometimes hears voices) Hx Miscellaneous Medical Probl: Yes (schizophrenia) Hx Alcohol Use: No Hx Substance Use: No Hx Tobacco Use: No Smoking Status: Never smoker FmHx Family History: No coronary disease, No diabetes, No other Physical Exam Vitals Vital Signs Date Time Temp Pulse Resp B/P Pulse Ox O2 Delivery O2 Flow Rate FiO2 05/07/17 23:39 98.4 90 18 109/60 99 Physical Exam GENERAL: The patient is well developed and appropriate for usual state of health, in no apparent distress. CHEST: Clear to auscultation bilaterally. There are no rales, wheezes or rhonchi. HEART: Regular rate and rhythm. No murmurs, clicks, rubs or gallops. No S3 or S4. ABDOMEN: Soft, generalized abdominal tenderness. Good bowel sounds. No rebound or guarding. No gross peritonitis. No gross organomegaly or masses. No Celis sign or McBurney point tenderness. BACK: No midline or flank tenderness. EXTREMITIES: Equal pulses bilaterally. There is no peripheral clubbing, cyanosis or edema. No focal swelling or erythema. Full range of motion. Grossly neurovascularly intact. NEURO: Alert and oriented. Cranial nerves 2-12 intact. Motor strength in all 4 extremities with 5/5 strength. Sensation grossly intact. Normal speech and gait. SKIN: There is no apparent rash or petechia. The skin is warm and dry. HEMATOLOGIC AND LYMPHATIC: There is no evidence of excessive bruising or lymphedema. No gross cervical, axillary, or inguinal lymphadenopathy. Result Diagram: 05/08/17 0341 05/08/17 0341 Results 24 hrs Laboratory Tests Test 05/08/17 03:35 05/08/17 03:41 Urine Color YELLOW Urine Clarity CLEAR Urine pH 5.0 Urine Specific [place] 1.014 Urine Ketones NEGATIVEmg/dL Urine Nitrite NEGATIVEmg/dL Urine Bilirubin NEGATIVEmg/dL Urine Urobilinogen NEGATIVEmg/dL Urine Leukocyte Esterase TRACELeu/ul Urine Microscopic RBC 0/HPF Urine Microscopic WBC 2/HPF Urine Squamous Epithelial Cells FEW/HPF Urine Bacteria FEW/HPF Urine Hemoglobin NEGATIVEmg/dL Urine Glucose NEGATIVEmg/dL Urine Total Protein NEGATIVEmg/dl White Blood Count 9.310^3/ul Red Blood Count 4.5610^6/ul Hemoglobin 12.9g/dl Hematocrit 40.4% Mean Corpuscular Volume 88.6fl Mean Corpuscular Hemoglobin 28.3pg Mean Corpuscular Hemoglobin Concent 31.9g/dl Red Cell Distribution Width 13.4% Platelet Count 56185^3/UL Mean Platelet Volume 10.4fl Neutrophils % 46.9% Lymphocytes % 43.4% Monocytes % 8.4% Eosinophils % 0.6% Basophils % 0.4% Nucleated Red Blood Cells % 0.0/100WBC Neutrophils # 4.410^3/ul Lymphocytes # 4.110^3/ul Monocytes # 0.810^3/ul Eosinophils # 0.110^3/ul Basophils # 0.010^3/ul Nucleated Red Blood Cells # 0.010^3/ul Sodium Level 144mmol/L Potassium Level 3.4mmol/L Chloride Level 104mmol/L Carbon Dioxide Level 30mmol/L Anion Gap 13 Blood Urea Nitrogen 14mg/dl Creatinine 0.86mg/dl Glucose Level 86mg/dl Calcium Level 9.4mg/dl Total Bilirubin 0.1mg/dl Direct Bilirubin 0.00mg/dl Indirect Bilirubin 0.1mg/dl Aspartate Amino Transf (AST/SGOT) 22IU/L Alanine Aminotransferase (ALT/SGPT) 36IU/L Alkaline Phosphatase 71IU/L Total Protein 7.9g/dl Albumin 4.1g/dl Globulin 3.80g/dl Albumin/Globulin Ratio 1.07 Lipase 89U/L Current Medications Medications (Trade) Dose Ordered Sig/Betsey Route PRN Reason Start Time Stop Time Status Last Admin Dose Admin Famotidine (Pepcid Iv) 20 mg ONCE ONCE IV 05/08/17 05:00 05/08/17 05:01 UNV Tramadol HCl (Ultram) 50 mg ONCE ONCE PO 05/08/17 05:00 05/08/17 05:01 UNV Procedures/MDM Medical Decision Making: Symptoms of abdominal pain nonspecific at this time, possible viral, possible gastritis. There is low suspicion for abdominal emergencies at this time. Patients abdominal exam is normal at this time. Patients radiology exam does not show any abdominal emergencies at this time. There is low suspicion for appendicitis, cholecystitis, abdominal aortic aneurysms or peritonitis at this time. There is low suspicion for sepsis. Patient appears well and is hemodynamically stable. Disposition: Home. Condition: Stable Prescription Pepcid Instructions: Patient is advised to take medications as prescribed. Patient is advised to rest, increase fluid intake and do brat diet for next 1-2 days and progress as tolerated. Patient is advised that if symptoms are worse, severe abdominal pain, uncontrolled vomiting, high fever, severe flank pain, worst signs and symptoms, to return to the emergency department immediately. Otherwise, patient can follow up with primary care doctor in 5-7 days. Disclaimer: Inadvertent spelling and grammatical errors are likely due to EHR/ dictation software use and do not reflect on the overall quality of patient care. Also, please note that the electronic time recorded on this note does not necessarily reflect the actual time of the patient encounter. Departure Diagnosis: Primary Impression: Abdominal pain Abdominal location: lower abdomen, unspecified Qualified Code: R10.30 - Lower abdominal pain Condition: Stable Patient Instructions: Abdominal Pain Additional Instructions: Patient is advised to take medications as prescribed. Patient is advised to rest, increase fluid intake and do brat diet for next 1-2 days and progress as tolerated. Patient is advised that if symptoms are worse, severe abdominal pain , uncontrolled vomiting, high fever, severe flank pain, worst signs and symptoms , to return to the emergency department immediately. Otherwise, patient can follow up with primary care doctor in 5-7 days. TALIA CHAVES NP May 08, 2017 03:53
--- NOTE | 2017-05-08 04:13 | RADRPT ---
PROCEDURE: CT Abdomen and pelvis without contrast. CLINICAL INDICATION: Abdominal pain. TECHNIQUE: CT scan of the abdomen and pelvis was performed on a multi-detector high-resolution CT scanner. Contiguous axial images were obtained from the lung bases to the ischial tuberosities wit hout intravenous contrast. Coronal and sagittal reformatted images were also obtained. Images were reviewed on the PACS workstation. One or more of the following dose reduction techniques were used: - Automated exposure control. - Adjustment of the mA and/or kV according to patient size. - Use of iterative reconstruction technique. Exam CTD/vol = 22.68 mGy. Total exam DLP = 1319.49 mGy-cm. COMPARISON: 11/12/2014. FINDINGS: Evaluation of the lung bases demonstrates no pleural or parenchymal disease. Abdomen: The liver is normal in size. There is no focal mass or dilatation of the biliary tree. T he gallbladder is not distended. The spleen, pancreas and bilateral adrenal glands are within cely l limits. Bilateral kidneys are normal in size with no contour deforming mass identified. There is no radiopaque renal or ureteral calculus identified. There is no hydronephrosis or hydroureter. T here is no retroperitoneal adenopathy. The abdominal aorta is of normal caliber. There is no abnormal bowel wall thickening or distension. There is no bowel obstruction or free air . A normal appendix is identified. There is no diverticulosis or diverticulitis. There is no asci alan. Pelvis: The bladder is unremarkable. The uterus and adnexa are within normal limits. There is no significant pelvic adenopathy or free fluid. Evaluation of the osseous structures demonstrates no suspicious lytic or blastic lesion. IMPRESSION: No acute abnormality identified within the abdomen and pelvis. .Temo Fagan MD, MD Date Time Electronically viewed and signed by .Temo Fagan MD, MD on 05/08/2017 04:13 .T/
[2017-05-08] MEDS ORDERED: FAMOTIDINE 20 MG INJ IV ONE (05:00)
[2017-05-08] MEDS ORDERED: traMADol 50 MG TAB PO ONE (05:00)
[2017-05-08] MEDS ORDERED: FAMO-96 PO (05:11)
== END 2017-05-08 05:36 | disposition home or self-care (01) ==
LOC: FTE 23:35
DX: R10.84 Generalized abdominal pain (principal)
CPT/HCPCS: 36415; 74176; 80053; 81001; 83690; 85025; 96374

== ENCOUNTER 2017-09-22 21:25 | Emergency (ER) | END 2017-09-22 23:20 | disposition home or self-care (01) ==

== ENCOUNTER 2018-01-07 20:47 | Emergency (ER) | END 2018-01-08 02:49 | disposition home or self-care (01) ==

== ENCOUNTER 2018-01-20 18:40 | Emergency (ER) | END 2018-01-20 21:31 | disposition home or self-care (01) ==

== ENCOUNTER 2018-04-20 19:24 | Emergency (ER) | END 2018-04-20 23:56 | disposition home or self-care (01) ==

== ENCOUNTER 2018-05-12 17:20 | Emergency (ER) | END 2018-05-12 20:41 | disposition home or self-care (01) ==

== ENCOUNTER 2018-05-27 00:55 | Emergency (ER) | END 2018-05-27 03:42 | disposition home or self-care (01) ==

== ENCOUNTER 2018-05-31 22:32 | Emergency (ER) | END 2018-06-01 01:30 | disposition home or self-care (01) ==

== ENCOUNTER 2018-09-11 23:31 | Emergency (ER) | payer OTHER ==
[~2018-09-11] VITALS: Wt 88.5 kg
[~2018-09-11 23:31] MED LIST changes: +BEN50 PO; -CYCL-319 PO; +CYCL10TA7 PO; +FAMO-96 PO; +IBUP-1544 PO; +IBUP-1561 PO; -IBUP800T25 PO; +NAPR-985 PO; +ONDA4TAB13 PO; +ONDA4TAB14 PO; +POLY17PO6 PO; +ZIPR60CA2 PO; -ZIPR60CA6 PO
[2018-09-11 23:39] VITALS: Wt 88.5 kg
[2018-09-11 23:54] VITALS: BP 126/88; PULSE 81; RESP 15
[2018-09-12] MEDS ORDERED: AMOXICILLIN 500 MG CAP PO ONE (01:00)
[2018-09-12] MEDS ORDERED: ACETAMINOPHEN 325 MG TAB PO ONE (01:00)
[2018-09-12] MEDS ORDERED: AMOX500C2 PO (01:07)
[2018-09-12] MEDS ORDERED: ACET500C5 PO (01:07)
--- NOTE | 2018-09-12 01:09 | ERD ---
ER Documentation Chief Complaint Chief Complaint mid-AP, bodyaches, sore throat x1d. HPI 38-year-old female presents with a history of schizophrenia and bipolar. She has a fever and sore throat starting today. She has some mild epigastric pain and body aches as well. She denies cough, vomiting, lower abdominal pain, urinary complaints. ROS All systems reviewed and are negative except as per history of present illness. Medications Home Meds Active Scripts Acetaminophen* (Tylophen*) 500 Mg Capsule, 1 CAP PO Q6H PRN for PAIN AND OR ELEVATED TEMP, #20 CAP Prov:MARYELLEN SARKAR MD 09/12/18 Amoxicillin* (Amoxicillin*) 500 Mg Cap, 500 MG PO TID for 10 Days, CAP Prov:MARYELLEN SARKAR MD 09/12/18 Ondansetron Hcl* (Zofran*) 4 Mg Tab, 4 MG PO Q6H PRN for NAUSEA AND OR VOMITING, #10 TAB Prov:SARAH CELIS MD 06/01/18 Polyethylene Glycol* (Miralax*) 17 Gm Powd.pack, 17 GM PO DAILY, #7 Prov:SARAH CELIS MD 06/01/18 Diphenhydramine Hcl* (Benadryl*) 50 Mg Cap, 50 MG PO Q6H PRN for ITCHING/RASH, #30 CAP Prov:EDMUND LUCIANO NP 05/27/18 Cephalexin* (Keflex*) 500 Mg Capsule, 500 MG PO QID for 10 Days, CAP Prov:LINDEN JUÁREZ MD 05/12/18 Sulfamethoxazole/Trimethoprim* (Bactrim Ds* Tablet) 1 Each Tablet, 1 TAB PO BID, #20 TAB Prov:LINDEN JUÁREZ MD 05/12/18 Ondansetron (Ondansetron Odt) 4 Mg Tab.rapdis, 4 MG PO Q6H PRN for NAUSEA AND/OR VOMITING, #10 TAB Prov:FEDE,YOAN 04/20/18 Naproxen* (Naprosyn*) 500 Mg Tablet, 500 MG PO BID PRN for PAIN AND/OR INFLAMMATION, #30 TAB Prov:FEDE,YOAN 04/20/18 Ibuprofen* (Motrin*) 400 Mg Tab, 400 MG PO Q6H PRN for PAIN AND OR ELEVATED T EMP, #30 TAB Prov:PATSY ECHAVARRIAC 01/20/18 Naproxen* (Naprosyn*) 500 Mg Tablet, 500 MG PO BID PRN for PAIN AND/OR INFLAMMATION, #30 TAB Prov:CARITO LACYC 09/22/17 Famotidine* (Pepcid*) 20 Mg Tablet, 20 MG PO BID, #20 TAB Prov:TALIA CHAVES NP 05/08/17 Ibuprofen* (Motrin*) 600 Mg Tab, 600 MG PO Q6, #30 TAB Prov:JUAN JOSE ZUÑIGAC 02/21/17 Cephalexin* (Keflex*) 500 Mg Capsule, 500 MG PO QID for 7 Days, CAP Prov:GERA CHAMBERS PA-C 02/02/17 Sulfamethoxazole/Trimethoprim* (Bactrim Ds* Tablet) 1 Each Tablet, 1 TAB PO BID for 7 Days, #14 TAB Prov:GERA CHAMBERS PA-C 02/02/17 Cyclobenzaprine Hcl* (Cyclobenzaprine Hcl*) 10 Mg Tablet, 10 MG PO TID, #15 TAB Prov:DARLING BRYANTC 11/10/16 Tramadol HCl (Tramadol HCl) 50 Mg Tablet, 50 MG PO Q4 PRN for PAIN, #20 TAB Prov:JOSE A DIAS PA-C 08/22/16 Ibuprofen* (Motrin*) 600 Mg Tab, 600 MG PO Q6, #30 TAB Prov:JUAN JOSE ZUÑIGAC 08/15/16 Loperamide Hcl* (Imodium*) 2 Mg Capsule, 2 MG PO .AFTER EA LOOSE BM PRN for DIARRHEA, #10 TAB Prov:JOSE A DIAS PA-C 06/09/16 Tramadol HCl (Tramadol HCl) 50 Mg Tablet, 50 MG PO Q6 PRN for PAIN, #12 TAB Prov:JUAN JOSE ZUÑIGAC 01/22/16 Ibuprofen* (Motrin*) 600 Mg Tab, 600 MG PO Q6, #30 TAB Prov:JUAN JOSE ZUÑIGAC 01/22/16 Cephalexin* (Keflex*) 500 Mg Capsule, 500 MG PO QID for 5 Days, CAP Prov:MARYELLEN SARKAR MD 09/08/15 Ibuprofen* (Motrin*) 600 Mg Tab, 600 MG PO Q6, #20 TAB Prov:MARYELLEN SARKAR MD 09/08/15 Tramadol HCl (Tramadol HCl) 50 Mg Tablet, 50 MG PO Q4 PRN for PAIN, #20 TAB Prov:MARYELLEN SARKAR MD 09/08/15 Neomycin/Polymyxin/Hydrocort* (Cortisporin* Otic) 10 Ml Susp, 4 DROP BOTH EARS QID for 7 Days, EA Prov:CARITO LACY PA-C 08/09/15 Ibuprofen* (Ibuprofen*) 600 Mg Tablet, 600 MG PO Q6 for PAIN, #30 TAB Prov:AYANNA ALONSO PA-C 05/30/15 Erythromycin (Erythromycin Opth) 3.5 Gm Oint..gm., 1 APPLIC RIGHT EYE Q6, #1 TUB Prov:TALIA CHAVES NP 03/23/15 Ibuprofen* (Ibuprofen*) 800 Mg Tablet, 800 MG PO Q6H PRN for PAIN AND OR ELEVATED TEMP, #30 TAB Prov:CARITO LACY PA-C 12/10/14 Reported Medications Escitalopram Oxalate* (Lexapro*) Unknown Strength Tablet, PO DAILY, TAB 11/12/14 Lorazepam* (Ativan*) 0.5 Mg Tablet, 0.5 MG PO HS 12/09/12 Ziprasidone* (Geodon*) 60 Mg Capsule, 120 MG PO HS 03/04/10 Allergies Allergies: Coded Allergies: aspirin (Verified Allergy, Mild, 05/07/17) acetaminophen (Verified Allergy, Unknown, ITCH, 05/07/17) hydrocodone bit (Verified Allergy, Unknown, ITCH, 05/07/17) PMhx/Soc History of Surgery: Yes (2 C SECTIONS, cholecystectomy) Anesthesia Reaction: No Hx Neurological Disorder: No Hx Respiratory Disorders: No Hx Cardiac Disorders: No Hx Psychiatric Problems: Yes (SCHIZOPHRENIA, Bipolar disorder, Anxiety) Hx Miscellaneous Medical Probl: No Hx Alcohol Use: No Hx Substance Use: No Hx Tobacco Use: No Smoking Status: Never smoker FmHx Family History: No diabetes, No coronary disease, No other Physical Exam Vitals Vital Signs Date Temp Pulse Resp B/P (MAP) Pulse Ox O2 O2 Flow FiO2 Time Delivery Rate 09/11/18 98.2 81 15 126/88 100 Room Air 23:54 (101) 09/11/18 101.1 106 22 127/57 100 23:39 (80) Physical Exam Const: No acute distress Head: Atraumatic Eyes: Normal Conjunctiva ENT: Normal External Ears, Nose and Mouth. TMs normal. Erythema in the throat. Airway patent and uvula midline. Neck: Full range of motion. No meningismus. Resp: Clear to auscultation bilaterally Cardio: Regular rate and rhythm, no murmurs Abd: Soft, non tender, non distended. Normal bowel sounds Skin: No petechiae or rashes Back: No midline or flank tenderness Ext: No cyanosis, or edema Neur: Awake and alert Psych: Normal Mood and Affect Results 24 hrs Current Medications Medications Dose Sig/Betsey Start Time Status Last (Trade) Ordered Route PRN Stop Time Admin Dose Reason Admin 650 mg ONCE ONCE 09/12/18 DC Acetaminophen PO 01:00 09/12/18 (Tylenol 01:01 Tab) Amoxicillin 500 mg ONCE ONCE 09/12/18 DC PO 01:00 09/12/18 (Amoxicillin) 01:01 Procedures/MDM Patient presents with fever, sore throat, body aches. She had epigastric pain but she has no signs of abdominal tenderness and abdominal exam is reassuring. She will be treated for pharyngitis with Tylenol, amoxicillin, Follow-up and return precautions. She has no evidence of abscess, airway obstruction, additional concerning signs or symptoms. The patient was stable with no new complaints during the ER course. Clinically, there is no current evidence to suggest meningitis, sepsis, acute abdomen, pneumonia, stroke, acute coronary syndrome, pulmonary embolism, aortic dissection or any other emergent condition appearing to require further evaluation or hospitalization. Patient counseled regarding my diagnostic impression and care plan. Prior to discharge all questions answered. Pt agrees with treatment plan and understands strict return precautions. Pt is instructed to follow up with primary care provider within 24-48 hours. Precautionary instructions provided including instructions to return to the ER if not improving or for any worsening or changing symptoms or concerns. Departure Diagnosis: Primary Impression: Sore throat Condition: Stable Patient Instructions: Pharyngitis, Strep (Presumed) Additional Instructions: Recheck for new or worsening symptoms with primary care doctor. MARYELLEN SARKAR MD Sep 12, 2018 01:09
== END 2018-09-12 01:24 | disposition home or self-care (01) ==
LOC: FTE 23:31
DX: J02.9 Acute pharyngitis, unspecified (principal)
CPT/HCPCS: 99283

== ENCOUNTER 2018-10-06 19:54 | Emergency (ER) | payer OTHER ==
[~2018-10-06] VITALS: Ht 157.5 cm; Wt 87.6 kg
[~2018-10-06 19:54] MED LIST changes: +ACET500C5 PO; +AMOX500C2 PO
[2018-10-06 20:24] VITALS: BP 121/78; PULSE 78; RESP 18; Ht 157.5 cm; Wt 87.6 kg
== END 2018-10-06 22:19 | disposition left against medical advice (07) ==
LOC: FTE 19:54 → E/R 22:19
DX: Z53.21 Procedure and treatment not carried out due to patient leaving prior to being seen by health care provider (principal)

== ENCOUNTER → 2018-11-06 | Emergency (ER) | payer OTHER ==
[~2018-11-06] VITALS: Ht 152.4 cm; Wt 89.7 kg
[~2018-11-06] MED LIST changes: +LIDOCAINE/MYLANTA 40 ML BTL PO ONE; +RANI150T35 PO
[2018-11-06 12:11] VITALS: BP 137/64; PULSE 87; RESP 18; Ht 152.4 cm; Wt 89.7 kg
--- NOTE | 2018-11-06 13:16 | ERD ---
ER Documentation Chief Complaint Chief Complaint mid-AP x1d, dizzy. denies NVD, "ate hot sauce yesterday" HPI 38-year-old female, previously healthy, presents the emergency department, complaining of 1 day with burning, epigastric pain after eating hot sauce yesterday. The patient denies fever, no chills, no nausea or vomiting, no weight loss, no bright red blood per rectum. ROS All systems reviewed and are negative except as per history of present illness. Medications Home Meds Active Scripts Ranitidine Hcl* (Zantac*) 150 Mg Tablet, 150 MG PO BID PRN for EPIGASTRIC PAIN, #30 TAB Prov:WILL BLACKWOOD MD 11/06/18 Acetaminophen* (Tylophen*) 500 Mg Capsule, 1 CAP PO Q6H PRN for PAIN AND OR ELEVATED TEMP, #20 CAP Prov:MARYELLEN SARKAR MD 09/12/18 Amoxicillin* (Amoxicillin*) 500 Mg Cap, 500 MG PO TID for 10 Days, CAP Prov:MARYELLEN SARKAR MD 09/12/18 Ondansetron Hcl* (Zofran*) 4 Mg Tab, 4 MG PO Q6H PRN for NAUSEA AND OR VOMITING, #10 TAB Prov:SARAH CELIS MD 06/01/18 Polyethylene Glycol* (Miralax*) 17 Gm Powd.pack, 17 GM PO DAILY, #7 Prov:SARAH CELIS MD 06/01/18 Diphenhydramine Hcl* (Benadryl*) 50 Mg Cap, 50 MG PO Q6H PRN for ITCHING/RASH, #30 CAP Prov:EDMUND LUCIANO NP 05/27/18 Cephalexin* (Keflex*) 500 Mg Capsule, 500 MG PO QID for 10 Days, CAP Prov:LINDEN JUÁREZ MD 05/12/18 Sulfamethoxazole/Trimethoprim* (Bactrim Ds* Tablet) 1 Each Tablet, 1 TAB PO BID, #20 TAB Prov:LINDEN JUÁREZ MD 05/12/18 Ondansetron (Ondansetron Odt) 4 Mg Tab.rapdis, 4 MG PO Q6H PRN for NAUSEA AND/OR VOMITING, #10 TAB Prov:FEDE,MELODY 04/20/18 Naproxen* (Naprosyn*) 500 Mg Tablet, 500 MG PO BID PRN for PAIN AND/OR INFLAMMATION, #30 TAB Prov:BARI MISTRYODY 04/20/18 Ibuprofen* (Motrin*) 400 Mg Tab, 400 MG PO Q6H PRN for PAIN AND OR ELEVATED TEMP, #30 TAB Prov:PATSY ECHAVARRIAC 01/20/18 Naproxen* (Naprosyn*) 500 Mg Tablet, 500 MG PO BID PRN for PAIN AND/OR INFLAMMATION, #30 TAB Prov:CARITO LACYC 09/22/17 Famotidine* (Pepcid*) 20 Mg Tablet, 20 MG PO BID, #20 TAB Prov:TALIA CHAVES NP 05/08/17 Ibuprofen* (Motrin*) 600 Mg Tab, 600 MG PO Q6, #30 TAB Prov:JUAN JOSE ZUÑIGAC 02/21/17 Cephalexin* (Keflex*) 500 Mg Capsule, 500 MG PO QID for 7 Days, CAP Prov:GERA CHAMBERSC 02/02/17 Sulfamethoxazole/Trimethoprim* (Bactrim Ds* Tablet) 1 Each Tablet, 1 TAB PO BID for 7 Days, #14 TAB Prov:GERA CHAMBERS PA-C 02/02/17 Cyclobenzaprine Hcl* (Cyclobenzaprine Hcl*) 10 Mg Tablet, 10 MG PO TID, #15 TAB Prov:DARLING BRYANTC 11/10/16 Tramadol HCl (Tramadol HCl) 50 Mg Tablet, 50 MG PO Q4 PRN for PAIN, #20 TAB Prov:JOSE A DIAS PA-C 08/22/16 Ibuprofen* (Motrin*) 600 Mg Tab, 600 MG PO Q6, #30 TAB Prov:JUAN JOSE ZUÑIGAC 08/15/16 Loperamide Hcl* (Imodium*) 2 Mg Capsule, 2 MG PO .AFTER EA LOOSE BM PRN for DIARRHEA, #10 TAB Prov:JOSEA DIAS PA-C 06/09/16 Tramadol HCl (Tramadol HCl) 50 Mg Tablet, 50 MG PO Q6 PRN for PAIN, #12 TAB Prov:JUAN JOSE ZUÑIGAC 01/22/16 Ibuprofen* (Motrin*) 600 Mg Tab, 600 MG PO Q6, #30 TAB Prov:JUAN JOSE ZUÑIGA PA-C 01/22/16 Cephalexin* (Keflex*) 500 Mg Capsule, 500 MG PO QID for 5 Days, CAP Prov:MARYELLEN SARKAR MD 09/08/15 Ibuprofen* (Motrin*) 600 Mg Tab, 600 MG PO Q6, #20 TAB Prov:MARYELLEN SARKAR MD 09/08/15 Tramadol HCl (Tramadol HCl) 50 Mg Tablet, 50 MG PO Q4 PRN for PAIN, #20 TAB Prov:MARYELLEN SARKAR MD 09/08/15 Neomycin/Polymyxin/Hydrocort* (Cortisporin* Otic) 10 Ml Susp, 4 DROP BOTH EARS QID for 7 Days, EA Prov:CARITO LACY PA-C 08/09/15 Ibuprofen* (Ibuprofen*) 600 Mg Tablet, 600 MG PO Q6 for PAIN, #30 TAB Prov:AYANNA ALONSO PA-C 05/30/15 Erythromycin (Erythromycin Opth) 3.5 Gm Oint..gm., 1 APPLIC RIGHT EYE Q6, #1 TUB Prov:TALIA CHAVES NP 03/23/15 Ibuprofen* (Ibuprofen*) 800 Mg Tablet, 800 MG PO Q6H PRN for PAIN AND OR ELEVAT ED TEMP, #30 TAB Prov:CARITO LACY PA-C 12/10/14 Reported Medications Escitalopram Oxalate* (Lexapro*) Unknown Strength Tablet, PO DAILY, TAB 11/12/14 Lorazepam* (Ativan*) 0.5 Mg Tablet, 0.5 MG PO HS 12/09/12 Ziprasidone* (Geodon*) 60 Mg Capsule, 120 MG PO HS 03/04/10 Allergies Allergies: Coded Allergies: aspirin (Verified Allergy, Mild, 11/06/18) acetaminophen (Verified Allergy, Unknown, ITCH, 11/06/18) hydrocodone bit (Verified Allergy, Unknown, ITCH, 11/06/18) PMhx/Soc History of Surgery: Yes (2 C SECTIONS, cholecystectomy) Anesthesia Reaction: No Hx Neurological Disorder: No Hx Respiratory Disorders: No Hx Cardiac Disorders: No Hx Psychiatric Problems: Yes (SCHIZOPHRENIA, Bipolar disorder, Anxiety) Hx Miscellaneous Medical Probl: No Hx Alcohol Use: No Hx Substance Use: No Hx Tobacco Use: No FmHx Family History: No diabetes, No coronary disease Physical Exam Vitals Vital Signs Date Temp Pulse Resp B/P (MAP) Pulse Ox O2 O2 Flow FiO2 Time Delivery Rate 11/06/18 97.5 87 18 137/64 97 12:11 (88) Physical Exam Const: No acute distress Head: Atraumatic Eyes: Normal Conjunctiva ENT: Normal External Ears, Nose and Mouth. Neck: Full range of motion. No meningismus. Resp: Clear to auscultation bilaterally Cardio: Regular rate and rhythm, no murmurs Abd: Soft, mildly distended, with diffuse tenderness to deep palpation, no peritoneal signs. Normal bowel sounds Skin: No petechiae or rashes Back: No midline or flank tenderness Ext: No cyanosis, or edema Neur: Awake and alert Psych: Normal Mood and Affect Result Diagram: 11/06/18 1350 11/06/18 1350 Results 24 hrs Laboratory Tests Test 11/06/18 13:40 11/06/18 13:50 POC Beta HCG, Qualitative NEGATIVE White Blood Count 5.8 10^3/ul Red Blood Count 4.24 10^6/ul Hemoglobin 12.1 g/dl Hematocrit 38.5 % Mean Corpuscular Volume 90.8 fl Mean Corpuscular Hemoglobin 28.5 pg Mean Corpuscular Hemoglobin Concent 31.4 g/dl Red Cell Distribution Width 14.1 % Platelet Count 212 10^3/UL Mean Platelet Volume 10.5 fl Immature Granulocytes % 0.300 % Neutrophils % 47.4 % Lymphocytes % 42.1 % Monocytes % 8.8 % Eosinophils % 1.2 % Basophils % 0.2 % Nucleated Red Blood Cells % 0.0 /100WBC Immature Granulocytes # 0.020 10^3/ul Neutrophils # 2.7 10^3/ul Lymphocytes # 2.4 10^3/ul Monocytes # 0.5 10^3/ul Eosinophils # 0.1 10^3/ul Basophils # 0.0 10^3/ul Nucleated Red Blood Cells # 0.0 10^3/ul Urine Color YELLOW Urine Clarity CLEAR Urine pH 5.0 Urine Specific [place] 1.020 Urine Ketones NEGATIVE mg/dL Urine Nitrite NEGATIVE mg/dL Urine Bilirubin NEGATIVE mg/dL Urine Urobilinogen NEGATIVE mg/dL Urine Leukocyte Esterase NEGATIVE Lina/ul Urine Microscopic RBC 1 /HPF Urine Microscopic WBC 1 /HPF Urine Bacteria FEW /HPF Urine Hemoglobin 1+ mg/dL Urine Glucose NEGATIVE mg/dL Urine Total Protein NEGATIVE mg/dl Sodium Level 144 mmol/L Potassium Level 4.0 mmol/L Chloride Level 110 mmol/L Carbon Dioxide Level 24 mmol/L Anion Gap 10 Blood Urea Nitrogen 9 mg/dl Creatinine 0.53 mg/dl Est Glomerular Filtrat Rate mL/min > 60 mL/min Glucose Level 88 mg/dl Calcium Level 9.1 mg/dl Total Bilirubin 0.1 mg/dl Direct Bilirubin 0.00 mg/dl Indirect Bilirubin 0.1 mg/dl Aspartate Amino Transf (AST/SGOT) 21 IU/L Alanine Aminotransferase (ALT/SGPT) 23 IU/L Alkaline Phosphatase 99 IU/L Total Protein 7.5 g/dl Albumin 4.0 g/dl Globulin 3.50 g/dl Albumin/Globulin Ratio 1.14 Lipase 192 U/L Current Medications Medications Dose Sig/Betsey Start Time Status Last (Trade) Ordered Route PRN Stop Time Admin Dose Reason Admin 40 ml ONCE ONCE 11/06/18 DC 11/06/18 Miscellaneous PO 13:30 11/06/18 13:37 Medication 13:35 (Gi Cocktail (2)) Procedures/MDM Vital signs stable. Differential diagnosis include but not limited to: Gastritis, gastroenteritis, cholelithiasis, cholecystitis, kidney stones, irritable bowel syndrome, inflammatory bowel syndrome, malabsorption syndrome, food intolerance, medication side effect, pancreatitis, diverticulitis, bowel obstruction. Physical examination and clinical presentation consistent most likely with acute gastritis. During the ED course the patient remained stable, no new complaints. The patient received treatment with GI cocktail presenting overall improvement of the symptoms. Results and clinical impression discussed with the patient who agrees with management. The patient is stable to be treated outpatient and will be discharged home with a Rx for ranitidine; some side effects of prescribed medications (headache, rash, nausea, vomiting, diarrhea, drowsiness, habituation, bleeding, hypertension, interactions with other medications) were reviewed. Follow up with the primary care provider in the next 48h is recommended. If symptoms persist, worsen or new symptoms develop, then patient should return to the ED immediately. Instructions explained and given directly by me to the patient with acknowledgment and demonstrated understanding. Disclaimer: Inadvertent spelling and grammatical errors are likely due to EHR/dictation software use and do not reflect on the overall quality of patient care. Also, please note that the electronic time recorded on this note does not necessarily reflect the actual time of the patient encounter. Departure Diagnosis: Primary Impression: Abdominal pain Additional Impression: Gastritis Condition: Stable Additional Instructions: Thank you very much for allowing us to participate in your care. Your health and safety is our top priority at [facility]. The evaluation in the emergency department has been done to rule out an acute emergency, therefore, chronic conditions like malignancy or other diseases have not been evaluated; therefore, you need to follow up with a primary care provider in the next 48h. If symptoms persist, worsen or new symptoms develop, then patient should return to the ED immediately. Call your primary care doctor TOMORROW for an appointment during the next 2-4 days and bring all the information provided. Have prescriptions filled and follow precisely the directions on the label. If the symptoms get worse and your provider is unavailable, return to the E mergency Department immediately. WILL BLACKWOOD MD November 06, 2018 13:16
== END | disposition home or self-care (01) ==
LOC: FTE 12:02
DX: K29.70 Gastritis, unspecified, without bleeding (principal)
CPT/HCPCS: 36415; 74176; 80053; 81001; 81025; 83690; 85025

== ENCOUNTER 2019-02-21 10:39 | Emergency (ER) | payer OTHER ==
[~2019-02-21] VITALS: Ht 160 cm; Wt 97.3 kg
[~2019-02-21 10:39] MED LIST changes: -LIDOCAINE/MYLANTA 40 ML BTL PO ONE
[2019-02-21 10:46] VITALS: BP 123/58; PULSE 93; RESP 17; Ht 160 cm; Wt 97.3 kg
== END 2019-02-21 12:41 | disposition home or self-care (01) ==
LOC: FTE 10:39
DX: S63.501A Unspecified sprain of right wrist, initial encounter (principal); S80.02XA Contusion of left knee, initial encounter; W01.0XXA Fall on same level from slipping, tripping and stumbling without subsequent striking against object, initial encounter; Y92.9 Unspecified place or not applicable
CPT/HCPCS: 73562

== ENCOUNTER 2019-03-26 21:47 | Emergency (ER) | payer OTHER ==
[~2019-03-26] VITALS: Ht 157.5 cm; Wt 101.1 kg
[~2019-03-26 21:47] MED LIST changes: +CIPR7.5D BOTH EARS; +RANI-535 PO; -RANI150T35 PO
[2019-03-26 22:21] VITALS: BP 115/63; PULSE 83; RESP 18; Ht 157.5 cm; Wt 101.1 kg
== END 2019-03-27 00:02 | disposition home or self-care (01) ==
LOC: FTE 21:47
DX: H66.93 Otitis media, unspecified, bilateral (principal); H60.93 Unspecified otitis externa, bilateral
CPT/HCPCS: 99283

== ENCOUNTER 2019-04-29 20:31 | Emergency (ER) | payer OTHER ==
[~2019-04-29] VITALS: Ht 157.5 cm; Wt 100.1 kg
[2019-04-29 20:59] VITALS: Ht 157.5 cm; Wt 100.1 kg
[2019-04-29] MEDS ORDERED: IBUPROFEN 600 MG TAB PO ONE (23:00)
[2019-04-30 00:30] VITALS: BP 124/80; PULSE 56; RESP 17
== END 2019-04-30 00:30 | disposition home or self-care (01) ==
LOC: FTE 20:31
DX: M79.642 Pain in left hand (principal); M79.641 Pain in right hand